=== PATIENT | female | born 1970 | race Caucasian/White ===

== ENCOUNTER 2016-09-21 20:22 | Emergency (ER) | payer OTHER, BC ==
[~2016-09-21 20:22] MED LIST: BIRTH CONTROL PILL
[2016-09-21] MEDS ORDERED: ZESTORETIC (20:39)
== END 2016-09-21 21:13 | disposition home or self-care (01) ==
LOC: SED 20:22
DX: S33.5XXA Sprain of ligaments of lumbar spine, initial encounter (principal); I10 Essential (primary) hypertension; Z88.2 Allergy status to sulfonamides; V49.40XA Driver injured in collision with unspecified motor vehicles in traffic accident, initial encounter; Y92.410 Unspecified street and highway as the place of occurrence of the external cause
CPT/HCPCS: 99283